=== PATIENT | female | born 1955 | race Caucasian/White ===

== ENCOUNTER 2018-11-02 21:54 | Emergency (ER) | payer BC ==
[~2018-11-02] VITALS: Ht 157.5 cm; Wt 56.7 kg
[2018-11-02 21:59] VITALS: BP_SYST 161
--- NOTE | 2018-11-02 22:03 | NUR ---
Placed in room 5 . Placed on cafeteria monitor, blood pressure machine and pulse oximeter. To gown for exam. Side rails up. Report given to KIERA THOMAS.
--- NOTE | 2018-11-02 22:10 | NUR ---
Pt BIB ALS C/O sudden onset of shortness of breath while watching. Pt denies any N/V/D, or chest pain. Vital signs are stable, sating at 100% on room air. Pt is ambulatory and walked to bed without assistance. Will continue to monitor.
--- NOTE | 2018-11-02 23:30 | NUR ---
ER Dr. Cheng at bedside examining patient.
--- NOTE | 2018-11-03 00:07 | NUR ---
# 22 gauge angiocath placed to RT Wrist. Use of asceptic technique. Opsite placed over site. Blood return noted. Blood for lab drawn from site. Flushed with 10 cc of normal saline. No evidence of infiltration noted. Patient tolerated well.
[2018-11-03 00:21] LABS: BASOPHILS % (AUTO) 0.4 % (0.0-2.0); EOSINOPHILS # (AUTO) 0.1 K/uL (0.0-0.4); EOSINOPHILS % (AUTO) 1.4 % (0.0-4.0); HEMATOCRIT 38.1 % (36-48); HEMOGLOBIN 13.1 g/dL (12.0-16.0); LYMPHOCYTES # (AUTO) 2.3 K/uL (1.0-5.5); LYMPHOCYTES % (AUTO) 26.5 % (20.5-51.5); MEAN CORPUSCULAR HEMOGLOBIN 31 pg (27-31); MEAN CORPUSCULAR HGB CONC 34 % (32-36); MEAN CORPUSCULAR VOLUME 90 fL (79.0-98.0); MONOCYTES # (AUTO) 0.5 K/uL (0.0-1.0); MONOCYTES % (AUTO) 6.2 % (1.7-9.3); NEUTROPHILS # (AUTO) 5.6 K/uL (1.8-7.7); NEUTROPHILS % (AUTO) 65.5 % (40.0-70.0); PLATELET COUNT (AUTO) 205 K/uL (130-430); RED BLOOD CELL COUNT(AUTO) 4.23 MIL/uL (4.2-6.2); RED CELL DISTRIBUTION WIDTH 12.4 % (9.0-15.0); WHITE BLOOD COUNT (AUTO) 8.5 K/uL (4.8-10.8)
[2018-11-03 00:30] LABS: CALCIUM 8.7 mg/dL (8.4-11.0); CREATININE 0.62 mg/dL (0.55-1.30); POTASSIUM 3.7 mmol/L (3.5-5.1)
[2018-11-03 00:34] LABS: PROTHROMBIN TIME 9.9 SECS (9.5-12.5)
[2018-11-03 00:37] LABS: ALBUMIN 3.6 g/dL (3.4-4.8); TOTAL BILIRUBIN 0.3 mg/dL (0.0-1.0)
--- NOTE | 2018-11-03 01:07 | NUR ---
Pt is resting quietly in bed, no acute distress noted. Will continue
[2018-11-03 02:05] VITALS: BP_SYST 161
== END 2018-11-03 02:04 | disposition home or self-care (01) ==
LOC: SED 21:54
DX: R07.89 Other chest pain (principal); R06.02 Shortness of breath; I10 Essential (primary) hypertension; Z90.89 Acquired absence of other organs; Z88.6 Allergy status to analgesic agent
CPT/HCPCS: 36415; 71045; 80053; 83880; 84484; 85025; 85379; 85610-TC; 85730-TC; 93005; 99284